=== PATIENT | female | born 1995 | race Caucasian/White ===

== ENCOUNTER 2017-03-26 09:53 | Emergency (ER) | payer OTHER ==
[2017-03-26 11:08] LABS: BASOPHIL 0.1 % (0-2); EOSINOPHIL 0.8 % (0-5); HCT 33.6 % (37.0-47.0); HGB 11.7 g/dl (12.5-16.0); LYMPHOCYTE 9.9 % (15-48); MCH 30.8 pg (25.0-31.0); MCHC 34.8 g/dL (32.0-36.0); MCV 88.4 fL (78.0-100.0); MONOCYTE 5.6 % (0-12); MPV 9.1 fL (6.0-9.5); NEUTROPHIL 83.6 % (41-80); PLT 302 K/uL (150-400); RDW 12.8 % (11.5-14.0); WBC 14.6 K/uL (4.0-10.5)
[2017-03-26 11:24] LABS: CREATININE 0.4 mg/dL (0.5-1.0)
== END 2017-03-26 12:02 | disposition home or self-care (01) ==
LOC: FER 09:53
PROVIDERS: Nurse Practitioner
DX: J02.0 Streptococcal pharyngitis (principal)
CPT/HCPCS: 36415; 76705; 80048; 85025; 85651; 86308; 87450

== ENCOUNTER 2017-04-09 00:23 | Day surgery (SDCO) | payer OTHER ==
[~2017-04-09] VITALS: Ht 162.6 cm; Wt 106.1 kg
[2017-04-09 00:56] LABS: BILIRUBIN NEGATIVE (NEGATIVE); BLOOD TRACE-INTACT Ery/uL (NEGATIVE); COLOR YELLOW (YELLOW); GLUCOSE (U) NORMAL (NORMAL); KETONE (U) NEGATIVE (NEGATIVE); LEUKOCYTES 2+ Leu/uL (NEGATIVE); NITRITE NEGATIVE (NEGATIVE); PROTEIN NEGATIVE (NEGATIVE); UROBILINOGEN 0.2 mg/dL (0.2-1.0)
[2017-04-09 00:57] LABS: CLARITY SLIGHTLY HAZY (CLEAR)
[2017-04-09 01:06] LABS: AMPHETAMINES NEGATIVE (NEGATIVE); BARBITURATES NEGATIVE (NEGATIVE); BENZODIAZEPINES NEGATIVE (NEGATIVE); COCAINE NEGATIVE (NEGATIVE); MARIJUANA (THC) NEGATIVE (NEGATIVE); METHADONE NEGATIVE (NEGATIVE); TRICYCLIC ANTIDEPRESSANT NEGATIVE (NEGATIVE)
[2017-04-09 02:10] LABS: HCT 31.7 % (37.0-47.0); HGB 10.9 g/dl (12.5-16.0); MCH 30.7 pg (25.0-31.0); MCHC 34.4 g/dL (32.0-36.0); MCV 89.3 fL (78.0-100.0); MPV 9.2 fL (6.0-9.5); RBC 3.55 M/uL (4.20-5.40); RDW 13.7 % (11.5-14.0); WBC 12.3 K/uL (4.0-10.5)
[2017-04-09 02:31] LABS: ALBUMIN 3.4 g/dL (3.5-5.0); BILIRUBIN - TOTAL 0.3 mg/dL (0.1-1.0); CREATININE 0.4 mg/dL (0.5-1.0); GLOBULIN (CALCULATION) 3.1 g/dL (2.2-4.2); POTASSIUM 4.1 mmol/L (3.5-5.1); TOTAL PROTEIN 6.5 g/dL (6.4-8.3); URIC ACID 3.7 mg/dL (2.4-5.7)
== END 2017-04-09 14:40 | disposition left against medical advice (07) ==
LOC: FOD 00:23 → FOB 00:24 → FOD 02:46 → FOB 02:47
PROVIDERS: ADMIT Obstetrics & Gynecology
DX: O26.893 Other specified pregnancy related conditions, third trimester (principal); R10.2 Pelvic and perineal pain; O16.3 Unspecified maternal hypertension, third trimester; Z3A.31 31 weeks gestation of pregnancy
CPT/HCPCS: 36415; 80053; 80305; 81003; 82950; 83615; 84550; G0378; J2405